=== PATIENT | male | born 1985 ===

== ENCOUNTER 2017-08-14 08:35 | Emergency (ER) | payer SELFPAY ==
[2017-08-14 08:38] VITALS: BMI 23.5
[2017-08-14 08:39] VITALS: BP 103/72; PULSE 73; RESP 20; TEMP 97.8; O2SAT 100
--- NOTE | 2017-08-14 09:01 | C.PDOC ---
History Of Present Illness 31-year-old male, presents to the emergency department with complaints of arm pain. Patient states he had a left upper extremity fracture in 06/23. Patient states he was placed on an external fixation device on arm, that is due to be removed but he has not followed up. States he banged the wall today and feels a loose piece. Pain is described as a constant and throbbing pain, rated 8/10. Patient notes that he wants the EXFIX removed.. Denies fevers, chills, nausea/ vomiting, or any other associated symptoms. No other complaints at this time. Time Seen by Provider: 08/14/17 08:47 Chief Complaint (Nursing): Upper Extremity Problem/Injury History Per: Patient History/Exam Limitations: no limitations Onset/Duration Of Symptoms: Days Current Symptoms Are (Timing): Still Present Quality: Other (throbbing) Severity: Moderate Pain Scale Rating Of: 8 Past Medical History Reviewed: Historical Data, Nursing Documentation, Vital Signs Vital Signs: Last Vital Signs Temp 97.8 F 08/14/17 08:38 Pulse 73 08/14/17 08:38 Resp 20 08/14/17 08:38 BP 103/72 08/14/17 08:38 Pulse Ox 100 08/14/17 15:10 Family History: States: Unknown Family Hx - Social History Hx Alcohol Use: Yes Hx Substance Use: No - Immunization History Hx Tetanus Toxoid Vaccination: (unk) Hx Influenza Vaccination: No Hx Pneumococcal Vaccination: No Review Of Systems Except As Marked, All Systems Reviewed And Found Negative. Constitutional: Negative for: Fever, Chills Cardiovascular: Negative for: Chest Pain Respiratory: Negative for: Shortness of Breath Gastrointestinal: Negative for: Nausea, Vomiting Musculoskeletal: Positive for: Arm Pain. Negative for: Back Pain Skin: Negative for: Rash Neurological: Negative for: Weakness, Numbness Physical Exam - Physical Exam Appears: Non-toxic, No Acute Distress Skin: Warm, Dry, No Rash Head: Atraumatic, Normacephalic Eye(s): bilateral: Normal Inspection Nose: Normal Oral Mucosa: Moist Lips: Normal Appearing Neck: Normal ROM Cardiovascular: Rhythm Regular, No Murmur Respiratory: Normal Breath Sounds, No Accessory Muscle Use Extremity: Other (external fixation device attached to left wrist and forearm.) Neurological/Psych: Oriented x3 ED Course And Treatment O2 Sat by Pulse Oximetry: 100 Medical Decision Making Medical Decision Making: Patient advised that we will mot remove his external fixation device in ER. He will be discharged to follow up in [facility]. Disposition Counseled Patient/Family Regarding: Diagnosis, Need For Followup - Disposition Disposition: HOME/ ROUTINE Disposition Time: 09:00 Condition: STABLE Additional Instructions: Please follow up with your Orthopedist. Forms: General Discharge Instructions - Clinical Impression Clinical Impression: Fracture of bone - Scribe Statement The provider has reviewed the documentation as recorded by the Scribe (Julius Pimentel) All medical record entries made by the Scribe were at my direction and personally dictated by me. I have reviewed the chart and agree that the record accurately reflects my personal performance of the history, physical exam, medical decision making, and the department course for this patient. I have also personally directed, reviewed, and agree with the discharge instructions and disposition.
== END 2017-08-14 09:30 | disposition home or self-care (01) ==
LOC: C.ER 08:35
DX: S42.302A Unspecified fracture of shaft of humerus, left arm, initial encounter for closed fracture (principal); X58.XXXA Exposure to other specified factors, initial encounter
CPT/HCPCS: 96372; 99283; J1885